=== PATIENT | female | born 1950 | race Two or more races ===

== ENCOUNTER 2021-01-20 09:41 | Inpatient (IN) | payer OTHER ==
[~2021-01-20] VITALS: Ht 160 cm; Wt 58.1 kg
[~2021-01-20 09:41] MED LIST: ATORVAST PO; CATAFLAN PO; PANADOL PO; SIMBICORT IN; SINGULAIR10 MG PO; SPIRIVA IH; ZOLOF PO
[2021-01-21] MEDS ORDERED: RIZATRIPTAN10 M1 (08:05)
[2021-01-21] MEDS ORDERED: ESOMEPRAZOLE MA40 MG (08:05)
[2021-01-21] MEDS ORDERED: AZELASTINE137 MCG/0. (08:05)
[2021-01-21] MEDS ORDERED: PROAIR HFA8.5 GM (08:05)
[2021-01-21] MEDS ORDERED: SUCRALFATE1 GM (08:05)
[2021-01-21] MEDS ORDERED: SPIRIVA RESPIMAT4 GM (08:05)
[2021-01-21] MEDS ORDERED: FLONASE16 GM (08:05)
[2021-01-21] MEDS ORDERED: SYMBICORT 16010.2 GM (08:06)
[2021-01-21] MEDS ORDERED: PANADOL EXTRA500 MG (08:07)
[2021-01-21] MEDS ORDERED: ATORVASTATIN CA10 MG (08:08)
[2021-01-21] MEDS ORDERED: DICLOFENAC SODI75 MG (08:08)
[2021-01-22] MEDS ORDERED: INTEGRA PLUS C1 EACH PO (07:36)
[2021-01-22] MEDS ORDERED: XARELTO10 MG PO (07:37)
[2021-01-22] MEDS ORDERED: PERCOCET 5-3251 EACH PO (07:40)
[2021-01-22] MEDS ORDERED: BACTRIM DS TAB1 EACH PO (07:41)
== END 2021-01-22 14:07 | DRG 470 ==
LOC: CIR.AMB 09:41 → EDSTATUS 10:00 → CIR.AMB 10:00 → SURH 10:00 → SURG 20:38
PROVIDERS: ADMIT Orthopaedic Surgery Sports Medicine; ATTEND Orthopaedic Surgery Sports Medicine
PROC: 0SRC0J9 Replacement of Right Knee Joint with Synthetic Substitute, Cemented, Open Approach (ICD-10-PCS; principal; 2021-01-20 13:00)
DX: M17.11 Unilateral primary osteoarthritis, right knee (principal); J43.9 Emphysema, unspecified; Z20.822 Contact with and (suspected) exposure to COVID-19; Z96.651 Presence of right artificial knee joint

== ENCOUNTER 2021-02-09 11:47 | Emergency (ER) | payer OTHER ==
[~2021-02-09] VITALS: Ht 160 cm; Wt 56.7 kg
[~2021-02-09 11:47] MED LIST changes: +ATORVASTATIN CA10 MG; +AZELASTINE137 MCG/0.; +BACTRIM DS TAB1 EACH PO; +DICLOFENAC SODI75 MG; +ESOMEPRAZOLE MA40 MG; +FLONASE16 GM; +INTEGRA PLUS C1 EACH PO; +PANADOL EXTRA500 MG; +PERCOCET 5-3251 EACH PO; +PROAIR HFA8.5 GM; +RIZATRIPTAN10 M1; +SPIRIVA RESPIMAT4 GM; +SUCRALFATE1 GM; +SYMBICORT 16010.2 GM; +XARELTO10 MG PO
== END 2021-02-09 18:59 | disposition home or self-care (01) ==
LOC: ER 11:47
DX: G89.18 Other acute postprocedural pain (principal); M79.604 Pain in right leg; M25.561 Pain in right knee; T84.84XA Pain due to internal orthopedic prosthetic devices, implants and grafts, initial encounter; I73.9 Peripheral vascular disease, unspecified; Y83.8 Other surgical procedures as the cause of abnormal reaction of the patient, or of later complication, without mention of misadventure at the time of the procedure

== ENCOUNTER 2024-05-10 08:00 | Outpatient (CLI) | payer OTHER ==
[~2024-05-10] VITALS: Ht 160 cm; Wt 54.9 kg
[2024-05-10 09:59] LABS: PH,URINE 6.5 (5.0-8.0); URINE APPEARANCE Clear; URINE BILIRRUBIN Negative (NEGATIVE); URINE BLOOD Negative; URINE COLOR Yellow; URINE GLUCOSE Negative (NEGATIVE); URINE LEUKOCYTE Trace; URINE NITRATE Negative; URINE PROTEIN Negative (NEGATIVE); URINE UROBILINOGEN 0.2 E.U./dl
[2024-05-10 10:07] LABS: URINE BACTERIA 11.3 uL (0.0-1933); URINE EPITHELIAL CELLS 4.7 uL (0.0-38.8); URINE RBC 15.7 uL (0.0-20.8); URINE WBC 2.7 uL (0.0-23.2)
[2024-05-10] MEDS ORDERED: CRESTOR5 MG PO (10:07)
[2024-05-10] MEDS ORDERED: PROTONIX40 MG PO (10:07)
[2024-05-10] MEDS ORDERED: BREYNA 160-4.10.3 GM IH (10:08)
[2024-05-10 10:11] LABS: HEMATOCRIT 38.8 % (36.0-45.00); HEMOGLOBIN 13.1 g/dL (12.0-15.00); MEAN CELL VOLUME 93.2 fL (80.00-100.00); MEAN CORPUSCULAR HEMOGLOBIN 31.5 pg (27.00-32.0); MEAN CORPUSCULAR HGB CONC 33.8 g/dl (32.0-36.0); PLATELET COUNT 227 K/uL (150-450); RED BLOOD COUNT 4.16 M/uL (4.00-6.00); RED CELL DISTRIBUTION WIDTH 14.7 % (11.5-14.5)
[2024-05-10 10:26] LABS: INR 1.09; PARTIAL THROMBOPLASTIN TIME 26.5 SECONDS (22.0-34.0); PROTHROMBIN TIME 11.4 SECONDS (9.0-11.5)
[2024-05-10 10:29] LABS: CALCIUM 9.7 mg/dL (8.5-10.1); CREATININE SERUM 0.89 mg/dL (0.55-1.02); GFR 62.17; POTASSIUM 4.75 mEq/L (3.5-5.1)
== END 2024-05-10 08:01 | disposition home or self-care (01) ==
LOC: RAD 08:00 → EDSTATUS 05-15 08:15 → SURH 05-15 08:15
PROVIDERS: ATTEND Orthopaedic Surgery Sports Medicine
DX: M17.11 Unilateral primary osteoarthritis, right knee (principal); D68.9 Coagulation defect, unspecified; I10 Essential (primary) hypertension; Z01.818 Encounter for other preprocedural examination